=== PATIENT | female | born 1960 | race African-American/Black ===

== ENCOUNTER → 2020-04-03 | Outpatient (CLI) | payer OTHER ==
--- NOTE | 2020-04-03 10:56 | RAD ---
MR#: [id number] Date of Study: 04/03/2020 Ordering Physician: CHIRAG GUZMAN Referring Physician: CHELE WRIGHT Tech: APPROVED REPORT Test Type: Exercise Stress Nurse/Tech: Stefanie Webber RN Test Indications: Dyspnea on exertion Cardiac History: See EMR Medications: See EMR Medical History: Asthma, Smoker for 40yrs., See EMR Resting ECG: SR Resting Heart Rate: 84 bpm Resting Blood Pressure: 133/70mmHg Pretest Chest Pain: No chest pain Nurse/Tech Notes Lungs CTA, Heart tones regular. Pt became "tired" within 3min and 15 seconds of stress. Pts blood pr essure was elevated to 184/92. Upon recovery pt's O2 Sat was 84% on RA. Pt recovered to 95% on RA by the end of recovery. Consent: The procedure was explained to the patient in lay terms. Informed consent was witnessed. Diego wagner was entered into [employer]. History and Stress Test performed by Iliana Anne, RT (R) (N) Stress Symptoms Dyspnea, Fatigue POST EXERCISE Reason for Termination: Patient request Target HR: No Max HR: 126 bpm 92% of Maximum Predicted HR: 137 bpm Exercise duration: 3:15 min:sec, 2 Stage Exercise capacity: 7.0METs Max Blood Pressure: 184/92mmHg Blood Pressure response to exercise: Abnormal blood pressure response during stress. Heart Rate response to exercise: WNL Chest Pain: No. Arrhythmia: No. ST Change: No. INTERPRETATION Stress EKG Conclusion: Baseline EKG showed sinus rhythm. No ischemic changes at peak stress. No arr hythmias. Conclusion 1. Treadmill exercise stress electrocardiogram did not show any diagnostic evidence of ischemia. 2. Patient has poor activity tolerance. Signed by : Liang Wrightally Approved : 04/03/2020 10:56:37
== END | disposition home or self-care (01) ==
LOC: NM 08:55
PROVIDERS: ATTEND Internal Medicine Cardiovascular Disease
DX: R06.09 Other forms of dyspnea (principal)
CPT/HCPCS: 93017

== ENCOUNTER 2020-12-15 22:29 | Emergency (ER) | payer OTHER ==
[~2020-12-15] VITALS: Ht 167.6 cm; Wt 90.5 kg
--- NOTE | 2020-12-15 23:46 | RAD ---
Chest AP portable at 2317: Reason for examination: Short of breath. Runny nose. The heart size is normal. Mediastinum is unremarkable. Lung smith show some linear density suggestin g atelectasis or scarring at the right lung base. There is some increased markings in the left lung b ase which could reflect atelectasis or some mild infiltrates. Calcified granulomas seen in the right upper lobe. No acute bony abnormalities are seen. Impression: Linear atelectasis or scarring at the right lung base. Increased markings at the left lung base which may reflect some early infiltrates or atelectasis. Recommend clinical correlation and follow-up. Electronically signed by: Sigrid Chew MD (12/15/2020 11:43 PM) ANTONIA
[2020-12-15] MEDS ORDERED: AMOX1TAB61 PO (23:50)
--- NOTE | 2020-12-15 23:50 | PHYS DOC ---
Past Medical History Past Medical History: Asthma, Hypertension Past Surgical History: Hysterectomy Additional Past Surgical Histo: PARTIAL HYSTERECTOMY Smoking Status: Current Every Day Smoker Alcohol Use: None General Adult EDM: Chief Complaint: SHORTNESS OF BREATH HPI: HPI: Patient is a 59 year old female presents with the chief complaint of runny nose, sinus congestion and shortness of breath. Sick contact with family member earlier this week. Tonight symptom of shortness of breath worse. Denies associated cough or fever. Review of Systems: Review of Systems: Review of systems: Constitutional symptoms- No fever, no chills. HEENT positive nasal congestion positive runny nose Eyes- No Discharge, No Visual Loss Respiratory symptoms- Positive shortness of breath, No wheezing, No Dyspnea on Exertion Cardiovascular Systems; No chest pain, No Palpitations, No syncope Gastrointestinal symptoms: NO abdominal pain, no nausea, no vomiting or diarrhea. Genitourinary symptoms: No dysuria. Musculoskeletal symptoms: No back pain No extremity pain. NEUROLOGICAL Symptoms: No headache, no generalized weakness; No focal Weakness Heart Score: C/O Chest Pain: No Risk Factors: Risk Factors: DM, Current or recent (<one month) smoker, HTN, HLP, family history of CAD, obesity. Risk Scores: Score 0 - 3: 2.5% MACE over next 6 weeks - Discharge Home Score 4 - 6: 20.3% MACE over next 6 weeks - Admit for Clinical Observation Score 7 - 10: 72.7% MACE over next 6 weeks - Early Invasive Strategies Allergies: Allergies: Allergies Coded Allergies Type Severity Reaction Last Updated Verified codeine Allergy Mild 04/03/20 No Physical Exam: PE: Constitutional: Well developed, well nourished, no acute distress, non-toxic appearance. [] HENT: Normocephalic, atraumatic, bilateral external ears normal, oropharynx moist, no oral exudates, nose normal. [] Eyes: PERRLA, EOMI, conjunctiva normal, no discharge. [] Neck: Normal range of motion, no tenderness, supple, no stridor. [] Cardiovascular:Heart rate regular rhythm, no murmur [] Lungs & Thorax: Bilateral breath sounds clear to auscultation [] Abdomen: Bowel sounds normal, soft, no tenderness, no masses, no pulsatile masses. [] Skin: Warm, dry, no erythema, no rash. [] Back: No tenderness, no CVA tenderness. [] Extremities: No tenderness, no cyanosis, no clubbing, ROM intact, no edema. [] Neurologic: Alert and oriented X 3, normal motor function, normal sensory function, no focal deficits noted. [] Psychologic: Affect normal, judgement normal, mood normal. [] Current Patient Data: Vital Signs: Vital Signs Date Time Temp Pulse Resp B/P (MAP) Pulse Ox O2 Delivery O2 Flow Rate FiO2 12/15/20 23:13 86 133/76 (95) 94 Room Air 12/15/20 22:41 98.4 16 98.4 EKG: EKG: [] Radiology/Procedures: Radiology/Procedures: [] Impression: Chest AP portable at 2317: Reason for examination: Short of breath. Runny nose. The heart size is normal. Mediastinum is unremarkable. Lung smith show some linear density suggesting atelectasis or scarring at the right lung base. There is some increased markings in the left lung base which could reflect atelectasis or some mild infiltrates. Calcified granulomas seen in the right upper lobe. No acute bony abnormalities are seen. Impression: Linear atelectasis or scarring at the right lung base. Increased markings at the left lung base which may reflect some early infiltrates or atelectasis. Joon mmend clinical correlation and follow-up. Electronically signed by: Sigrid Chew MD (12/15/2020 11:43 PM) [facility] Course & Med Decision Making: Course & Med Decision Making Pertinent Labs and Imaging studies reviewed. (See chart for details) [] Patient was evaluated for chief complaint. Work-up consisted of laboratory analysis and radiologic imaging. Results reviewed and discussed with patient. Chest x-ray per radiologist possible left lower lobe infiltrate. Flu swab and Covid pending. Patient will be discharged home on Augmentin. Patient given PUI/covid instructions. Dragon Disclaimer: Dragon Disclaimer: This electronic medical record was generated, in whole or in part, using a voice recognition dictation system. Departure Departure Impression: Primary Impression: Pneumonia Additional Impression: Person under investigation for COVID-19 Disposition: 01 DC HOME SELF CARE/HOMELESS Condition: STABLE Referrals: RANDALL FARNSWORTH MD (PCP) Patient Instructions: Pneumonia, Adult Additional Instructions: You have been tested for or diagnosed with COVID-19. It is an infection caused by a new type of coronavirus. COVID-19 will cause cold-like or mild flu symptoms in most. It can cause more severe symptoms like problems breathing in some. There is no treatment for COVID-19. The body will clear the infection over time. Self-care will help to ease discomfort. Steps to Take: Self-Care Rest as needed. Healthy habits may help you feel better. Steps include: Choose healthy foods including fruits and vegetables. Drink water throughout the day. Get plenty of sleep each night. If you smoke, try to quit. It may ease breathing. Avoid alcohol. Keep Others Healthy The virus can spread to others. Droplets are released every time you sneeze or cough. The droplets can get into the mouth, nose, or eyes of people near you and lead to infection. To lower the chances of spreading COVID-19 to others: Stay at home until your doctor has said it is safe to leave. If you tested positive this will mean staying isolated until both of the following are true: At least 7 days have passed since the start of illness. You are free of fever for at least 72 hours without the use of medicine. During this time: - Avoid public areas, events, or transportation. Do not return to work or school until your doctor has said it is safe to do so. - Call ahead if you need to go to a medical center. Let them know you may have COVID-19. It will help them guide you where to go. They may also ask you to wear a facemask when you come to the office. - If you call for emergency medical services, let them know you may have COVID- 19. While at home: - Try to avoid close contact with others. Stay about 6 feet away. - If possible, spend most of your time in a separate room from others. - Use a face mask if you will be in close contact with others such as sharing a room or vehicle. - Have someone wipe down common surfaces in the home. Use household gastroenterology professor every day on areas like doorknobs, counters, or sinks. - Cough or sneeze into a tissue. Throw the tissue away right after use. If a tissue is not available, cough or sneeze into your elbow. - Wash your hands often. Wash them after sneezing or coughing. Use soap and water and wash for at least 20 seconds. Alcohol based hand cleaner operator can be used if soap and water is not available. - Do not prepare food for others. Avoid sharing personal items like forks, s poons, or toothbrushes. - Avoid close contact with pets while you are sick. There is no evidence of the virus passing to pets. This is a safety step until more is known about this virus. Isolation can be frustrating. Social interaction can help. Keep in touch with friends and family through phone and tech options. You can still interact with others in your home, just keep a safe distance of about 6 feet. Follow-up: Your doctors office will check in with you to see if there are any changes in your health. You may be asked to keep track of symptoms to share with them. They will also let you know when you are clear to be in public again. Problems to Look Out For: Contact your doctor if your recovery is not going as you expect. Get emergency care if you have problems such as: - Trouble breathing - Nonstop chest pain or pressure - Changes in awareness, confusion, or problems waking - Lips or face have bluish color - Worsening of symptoms If you think you have an emergency, call for emergency medical services right away. [facility] Script[facility] Amoxicillin/Potassium Clav (AUGMENTIN 875-125 TABLET) 1 Each Tablet 1 TAB PO BID for 10 Days, #20 TAB 0 Refills Prov: ELLIOT CHIN I DO 12/15/20 ELLIOT CHIN I DO Dec 15, 2020 23:50
[2020-12-15 23:59] LABS: INFLUENZA A PATIENT NEGATIVE (NEGATIVE); INFLUENZA B PATIENT NEGATIVE (NEGATIVE)
[2020-12-16 00:13] VITALS: BP 133/84
--- NOTE | 2020-12-17 17:57 | NUR ---
IP: Informed pt of negative COVID test. Pt verbalized understanding.
== END 2020-12-16 00:40 | disposition home or self-care (01) ==
LOC: ER 22:29
DX: J18.9 Pneumonia, unspecified organism (principal); Z20.822 Contact with and (suspected) exposure to COVID-19; R09.81 Nasal congestion; R06.02 Shortness of breath; R09.89 Other specified symptoms and signs involving the circulatory and respiratory systems; J45.909 Unspecified asthma, uncomplicated; I10 Essential (primary) hypertension; F17.200 Nicotine dependence, unspecified, uncomplicated; Z90.89 Acquired absence of other organs; Z90.710 Acquired absence of both cervix and uterus
CPT/HCPCS: 71045; 87804; 99284; U0003; C9803

== ENCOUNTER → 2021-01-08 | Outpatient (CLI) | payer OTHER ==
[2020-12-16 00:13] VITALS: BP 133/84
[~2021-01-08] MED LIST: AMOX1TAB61 PO
--- NOTE | 2021-01-08 09:18 | RAD ---
Chest radiograph 01/08/2021 8:31 AM INDICATION: Bronchitis, pneumonia COMPARISON: 12/15/2020 TECHNIQUE: Frontal and lateral views of the chest are provided. FINDINGS: The cardiomediastinal silhouette is within normal limits. Calcified granuloma identified in the right upper lobe measuring 7 mm, stable. There are no pleural effusions. There is no pulmonary vascular congestion. There is no pneumothorax. The lungs are clear. Mild bronchial wall thickening in the lower lobes may reflect bronchitis. No foc al airspace consolidation. No significant osseous abnormality is identified. IMPRESSION: Mild bronchitis without consolidative change to suggest superimposed pneumonia. Electronically signed by: Fabienne Sharma MD (01/08/2021 9:16 AM) [id number]
== END ==
LOC: RAD 08:24
PROVIDERS: ATTEND Internal Medicine
DX: J40 Bronchitis, not specified as acute or chronic (principal); J18.9 Pneumonia, unspecified organism
CPT/HCPCS: 71046

== ENCOUNTER 2021-07-02 18:05 | Emergency (ER) | payer OTHER ==
[~2021-07-02] VITALS: Ht 167.6 cm; Wt 92.3 kg
[2021-07-02 19:35] VITALS: BP 157/94
--- NOTE | 2021-07-02 19:57 | PHYS DOC ---
Past Medical History Past Medical History: Asthma, Hypertension Past Surgical History: Hysterectomy Additional Past Surgical Histo: PARTIAL HYSTERECTOMY Smoking Status: Current Every Day Smoker Alcohol Use: None General Adult EDM: Chief Complaint: SHORTNESS OF BREATH HPI: HPI: Patient is a 60 year old female with history of HTN, asthma versus COPD, daily smoker who presents with chronic shortness of breath. Has progressed over the p ast several months. Worse with exertion. Worse with laying flat. Sleeps with several pillows at nighttime. Has noticed mild swelling in her ankles only when she stands for long periods of time, but otherwise denies any swelling. States that it is symmetric bilaterally when it occurs. No chest pain. No fever, chills, cough, or sputum production recently. Currently smoking about 6 cigarettes daily. States that she has recently had a CT scan of her chest, through her PCP, that she states was fine. She thinks that there was no IV contrast She has not had an echocardiogram. Stress testing in 2019 showed poor exercise tolerance but no ischemic changes on EKG. States she thinks she may have been exposed to covid ~10-14 days ago. Review of Systems: Review of Systems: Constitutional: Denies fever or chills. [] Eyes: Denies change in visual acuity. [] HENT: Denies nasal congestion or sore throat. [] Respiratory: Reports shortness of breath. Denies cough, sputum production. [] Cardiovascular: Denies chest pain or edema. [] GI: Denies abdominal pain, nausea, vomiting, bloody stools or diarrhea. [] : Denies dysuria. [] Musculoskeletal: Denies back pain or joint pain. [] Integument: Denies rash. [] Neurologic: Denies headache, focal weakness or sensory changes. [] Endocrine: Denies polyuria or polydipsia. [] Lymphatic: Denies swollen glands. [] Psychiatric: Denies depression or anxiety. [] Heart Score: C/O Chest Pain: No Risk Factors: Risk Factors: DM, Current or recent (<one month) smoker, HTN, HLP, family hist ory of CAD, obesity. Risk Scores: Score 0 - 3: 2.5% MACE over next 6 weeks - Discharge Home Score 4 - 6: 20.3% MACE over next 6 weeks - Admit for Clinical Observation Score 7 - 10: 72.7% MACE over next 6 weeks - Early Invasive Strategies Allergies: Allergies: Allergies Coded Allergies Type Severity Reaction Last Updated Verified codeine Allergy Mild 04/03/20 No Physical Exam: PE: Constitutional: Well developed, well nourished, no acute distress, non-toxic appearance. [] HENT: Normocephalic, atraumatic, bilateral external ears normal, oropharynx moist, no oral exudates, nose normal. [] Eyes: PERRLA, EOMI, conjunctiva normal, no discharge. [] Neck: Normal range of motion, no tenderness, supple, no stridor. [] Cardiovascular:Heart rate regular rhythm, no murmur [] Lungs & Thorax: Distant lung sounds bilaterally, symmetric sounding. No wheezes. Normal work of breathing. Satting upper 90s on room air. Speaking in full sentences [] Abdomen: Bowel sounds normal, soft, no tenderness, no masses, no pulsatile masses. [] Skin: Warm, dry, no erythema, no rash. [] Back: No tenderness, no CVA tenderness. [] Extremities: No tenderness, no cyanosis, no clubbing, ROM intact, no edema. [] Neurologic: Alert and oriented X 3, normal motor function, normal sensory function, no focal deficits noted. [] Psychologic: Affect normal, judgement normal, mood normal. [] Current Patient Data: Vital Signs: Vital Signs Date Time Temp Pulse Resp B/P (MAP) Pulse Ox O2 Delivery O2 Flow Rate FiO2 07/02/21 19:35 98.3 98 18 157/94 (115) 96 Room Air 98.3 EKG: EKG: Sinus rhythm. Rate eighty-eight. Normal axis. Normal intervals. QTc 451. Some baseline wander limits complete analysis but no apparent ischemic changes. [] Radiology/Procedures: Radiology/Procedures: [] Impression: [facility] [address] [place] [address] IMAGING REPORT Signed PATIENT: CANDY GODINEZ ACCOUNT: [id number] : 1960 LOCATION: ER AGE: 60 SEX: F EXAM STATUS: REG ER ORD. PHYSICIAN: KUMAR CURRY MD REASON: shortness of breath PROCEDURE: CHEST AP ONLY Exam: Chest one view INDICATION: Shortness of breath TECHNIQUE: Frontal view of the chest Comparisons: 01/08/2021 FINDINGS: The cardiomediastinal silhouette and pulmonary vessels are within normal limits. Subtle patchy alveolar airspace disease. No pleural effusion. IMPRESSION: Patchy bibasilar airspace disease may be infectious or inflammatory in etiology. Electronically signed by: Becca Sheppard MD (07/02/2021 8:32 PM) [facility] DICTATED and SIGNED BY: BECCA SHEPPARD MD DATE: 07/02/[id number] 0 Course & Med Decision Making: Course & Med Decision Making Pertinent Labs and Imaging studies reviewed. (See chart for details) Patient 60-year-old female with history of HTN, reactive airway disease versus COPD, daily smoking who presents with progressive shortness of breath over the past several months. Upon arrival is afebrile, hemodynamically stable. Satting upper 90s on room air with normal work of breathing. No wheezing on auscultatory exam. No infectious symptoms, but is concerned about a potential covid exposure 10-14 days ago. Will swab for covid. No chest pain to suggest cardiac ischemia. Given history feel most likely etiologies for SOB would be HF or COPD. WIll check ekg, trop, bnp, cbc, bmp, CXR. 2000 EKG nonischemic. Troponin negative. BNP, not supportive of heart failure. Chest x-ray shows some evidence of interstitial scarring versus pulmonary edema versus consolidation. WBC slightly elevated. Will treat with augmentin and azithromycin. Covid test is pending. She continues to sat well on room air and has stable vital signs. No indication for hospitalization at this time. She has close PCP follow-up. I have asked her to schedule an appointment to discuss further testing such as echocardiogram or PFTs if her symptoms persist. 2112 Patricia Disclaimer: Patricia Disclaimer: This electronic medical record was generated, in whole or in part, using a voice recognition dictation system. Departure Departure Impression: Primary Impression: Pneumonia Disposition: HOME / SELF CARE / HOMELESS Condition: STABLE Referrals: RANDALL FARNSWORTH MD (PCP) Additional Instructions: There is some evidence of pneumonia on your chest x-ray. I like to treat this with a round of antibiotics. There are 2 separate antibiotics and want you to take take the full prescription of. Please follow-up with your primary care doctor after you complete this course. Please return to the emergency department if you develop high fevers, shaking chills, worsening shortness of breath, or new onset chest pain. Scripts Azithromycin (AZITHROMYCIN TABLET) 250 Mg Tablet 250 MG PO DAILY for ANTI-BIOTIC for 5 Days, #6 TAB 0 Refills Take 2 tabs on day 1, followed by 1 tab daily. Prov: KUMAR CURRY MD 07/02/21 Amoxicillin/Potassium Clav (AUGMENTIN 875-125 TABLET) 1 Each Tablet 1 TAB PO Q12HR for 7 Days, #14 TAB 0 Refills Prov: KUMAR CURRY MD 07/02/21 KUMAR CURRY MD Jul 02, 2021 19:57
[2021-07-02 20:16] LABS: BASO # 0.1 x10^3/uL (0.0-0.2); BASO % 1 % (0-3); EOS # 0.2 x10^3/uL (0.0-0.7); EOS % 2 % (0-3); HEMATOCRIT 42.9 % (36.0-47.0); HEMOGLOBIN 14.4 g/dL (12.0-15.5); LYMPH # 2.4 x10^3/uL (1.0-4.8); LYMPH % 21 % (24-48); MEAN CORPUSCULAR HEMOGLOBIN 32 pg (25-35); MEAN CORPUSCULAR HGB CONC 34 g/dL (31-37); MEAN CORPUSCULAR VOLUME 94 fL (79-100); MONO # 0.7 x10^3/uL (0.0-1.1); MONO % 6 % (0-9); NEUT # 8.3 x10^3/uL (1.8-7.7); NEUT % 71 % (31-73); PLATELET COUNT 233 x10^3/uL (140-400); RED BLOOD COUNT 4.58 x10^6/uL (3.50-5.40); RED CELL DISTRIBUTION WIDTH 14.9 % (11.5-14.5); WHITE BLOOD COUNT 11.7 x10^3/uL (4.0-11.0)
[2021-07-02 20:26] LABS: GFR 68.7; POTASSIUM 3.5 mmol/L (3.5-5.1)
--- NOTE | 2021-07-02 20:35 | RAD ---
Exam: Chest one view INDICATION: Shortness of breath TECHNIQUE: Frontal view of the chest Comparisons: 01/08/2021 FINDINGS: The cardiomediastinal silhouette and pulmonary vessels are within normal limits. Subtle patchy alveolar airspace disease. No pleural effusion. IMPRESSION: Patchy bibasilar airspace disease may be infectious or inflammatory in etiology. Electronically signed by: Becca Hamilton MD (07/02/2021 8:32 PM) LINSEY
[2021-07-02] MEDS ORDERED: AMOX1TAB61 PO (21:19)
[2021-07-02] MEDS ORDERED: AZIT250T6 PO (21:19)
--- NOTE | 2021-07-03 06:33 | EKG ---
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
--- NOTE | 2021-07-03 15:32 | NUR ---
IP: Patient notified of negative COVID19 test result. Verbalized understanding.
== END 2021-07-02 21:26 | disposition home or self-care (01) ==
LOC: ER 18:05
DX: J18.9 Pneumonia, unspecified organism (principal); Z20.822 Contact with and (suspected) exposure to COVID-19; J45.909 Unspecified asthma, uncomplicated; I10 Essential (primary) hypertension; F17.200 Nicotine dependence, unspecified, uncomplicated; Z88.5 Allergy status to narcotic agent
CPT/HCPCS: 36415; 71045; 80048; 83880; 84484; 85025; 87426; 93005; 99285; U0003; U0005